=== PATIENT | male | born 1930 | race Caucasian/White ===

== ENCOUNTER → 2019-03-06 | Outpatient (CLI) | payer MEDICARE, BC | LOC: GMAM 19:12 | PROVIDERS: ATTEND Family Medicine | DX: Z12.5 Encounter for screening for malignant neoplasm of prostate (principal); I10 Essential (primary) hypertension ==

== ENCOUNTER → 2019-03-19 | Outpatient (CLI) | payer MEDICARE, BC | LOC: GMAM 11:43 | PROVIDERS: ATTEND Family Medicine | DX: R97.20 Elevated prostate specific antigen [PSA] (principal) ==

== ENCOUNTER 2020-04-19 07:09 | Emergency (ER) | payer MEDICARE, BC ==
--- NOTE | 2020-04-19 07:14 | ED.PDOC ---
History of Present Illness - General Time Seen by Provider: 04/19/20 07:10 Source: patient, family - History of Present Illness Initial Comments: 89-year-old male with past medical history of BPH who is brought in by daughter from home for chief complaint of unable to urinate. Patient reports he last urinated small volume approximately 11 hours ago. Since then he has been up for most of the night trying to urinate but unable. Reports severe discomfort to the lower abdominal region which radiates to the lower back bilaterally, constant, worse with palpation of the lower abdomen, tried taking Flomax x2 overnight without any relief. Reports history of enlarged prostate and has only had issues with urinary retention once before which was while he was in the hospital after his heart surgery and required a Sotelo catheter for a few days but states he has never been sent home with a urinary catheter. Denies any fevers, chills, dysuria/hematuria, constipation, diarrhea, cough, shortness of breath, chest pain, leg swelling. PCP is Dr. Spivey. His urologist is Dr. Melendez. Allergies/Adverse Reactions: Allergies NO KNOWN ALLERGY Allergy (Verified 04/19/20 07:31) Home Medications: Ambulatory Orders Clopidogrel Bisulfate 04/19/20 Metoprolol Tartrate 50 mg PO BID 04/19/20 Tamsulosin HCl 04/19/20 Review of Systems - Review of Systems Review of Systems: 04/19/20 07:30 as per HPI All other Systems: Reviewed and Negative Family Medical History - Family History Mother Family History: Unknown Living Status: Physical Exam - Physical Exam General Appearance: Alert, Comfortable, No apparent distress Eye Exam: bilateral normal Ears, Nose, Throat: hearing grossly normal, normal ENT inspection Neck: normal inspection Respiratory: lungs clear, normal breath sounds, no respiratory distress, no accessory muscle use Cardiovascular/Chest: normal peripheral pulses, regular rate, rhythm, no edema, no gallop, systolic murmur Peripheral Pulses: radial,right: 2+, radial,left: 2+ Gastrointestinal/Abdominal: soft, abnormal bowel sounds - diminished, distended, tenderness - moderate suprapubic ttp w/o rebound or guarding, mild BL lower CVA ttp Back Exam: normal inspection Extremity: normal range of motion, non-tender, normal inspection, no pedal edema, no calf tenderness, normal capillary refill 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 Consider also neurogenic bladder versus other obstructive processes. Consider also UTI, constipation, prostate cancer. -Patient stable, blood pressure slightly elevated, vitals otherwise normal -Bedside transabdominal ultrasound done by me reveals fluid-filled bladder with diameter of 16 cm. I estimate approximately 1500 cc of urine in the bladder. -We will Place Sotelo catheter in the ED and plan to send home with the catheter in place. Patient will need to follow-up with his PCP and urologist in the next 1 to 2 weeks to discuss possible trial of removal. -Obtain UA 04/19/20 09:08 -UA reveals moderate amount of blood, which is due to the placement of the Sotelo catheter. Otherwise no evidence of infection. -Patient has had greater than 1000 cc of urine output since Sotelo placement. He reports complete resolution of suprapubic discomfort. -Sotelo catheter left in place, patient to follow-up with PCP and urology. Catheter care discussed prior to discharge. Estrada Smith MD Billing #[id number]. Laboratory Results - last 24 hr 04/19/20 08:01 Urine Color Yellow Urine Appearance Sl cloudy Urine pH 5.5 Ur Specific [place] 1.020 Urine Protein Negative Urine Glucose (UA) Negative Urine Ketones Negative Urine Blood Large H Urine Nitrite Negative Urine Bilirubin Negative Urine Urobilinogen 0.2 Ur Leukocyte Esterase Negative Urine RBC 20-30 H Urine WBC 0 Ur Epithelial Cells 0 Urine Bacteria 0 Departure - Departure Clinical Impression: BPH with obstruction/lower urinary tract symptoms Time of Disposition: 07:35 Disposition: Discharge to Home or Self Care Condition: Good Instructions: Benign Prostatic Hyperplasia (Enlarged Prostate) (DC) Diet: resume usual diet Activity: increase activity as tolerated Referrals: Sctot Spivey MD [Primary Care Provider] - 1-2 Weeks Home Medications: Ambulatory Orders Clopidogrel Bisulfate 04/19/20 Metoprolol Tartrate 50 mg PO BID 04/19/20 Tamsulosin HCl 04/19/20 Additional Instructions: Keep the urinary catheter in place until your follow-up visit with Dr. Spivey and Dr. Melendez. With soap and water, gently wash the tip of the penis at the site of catheter entry once per day and pat dry. Afterwards apply generous amount of barrier protectant such as Vaseline in order to prevent irritation and rubbing of the skin at the site. Return to the ED if you develop concerning symptoms such as obstruction of the catheter, large bleeding and blood clots in the catheter, worsening abdominal pain, fevers, chills, etc. Follow-up with your primary care physician is recommended in the next 1 to 2 weeks for repeat evaluation or sooner as needed.
[2020-04-19 09:29] VITALS: BP 132/58; TEMP 97.2; O2SAT 97
== END 2020-04-19 09:20 | disposition home or self-care (01) ==
LOC: ER 07:09
DX: N40.1 Benign prostatic hyperplasia with lower urinary tract symptoms (principal); R33.8 Other retention of urine; Z79.899 Other long term (current) drug therapy

== ENCOUNTER → 2020-05-06 | Outpatient (CLI) | payer MEDICARE, BC | LOC: GMAM 16:58 | PROVIDERS: ATTEND Family Medicine | DX: R97.20 Elevated prostate specific antigen [PSA] (principal); I10 Essential (primary) hypertension ==

== ENCOUNTER → 2020-05-09 | Outpatient (CLI) | payer MEDICARE, BC ==
--- NOTE | 2020-05-09 09:00 | CT ---
EXAM DESCRIPTION: Abdoment/Pelvis w/o Contrast CLINICAL HISTORY: MALIGNANT NEOPLASM OF PROSTATE COMPARISON: None. TECHNIQUE: Noncontrast transaxial CT images of the abdomen and pelvis are obtained. This exam was performed according to our departmental dose-optimization program, which includes automated exposure control, adjustment of the mA and/or kV according to patient size and/or use of iterative reconstruction technique . FINDINGS: Visualized lung bases show interstitial scarring or atelectasis in the inferior lingula of the left upper lobe. Severe coronary artery calcifications are seen. Images of the abdomen are mildly degraded by patient breathing motion artifact. Given the limitations of a noncontrast exam the liver shows mild nodularity of the liver capsule. Mildly prominent umbilical vein is seen. Mild air in the biliary ductal system is seen. Surgical clips from cholecystectomy. The distal common bile duct measures 5 to 6 mm which is within normal limits. Noncontrast appearance of the spleen, pancreas, and adrenal glands are unremarkable. Mild to moderate scattered vascular calcifications are seen. 1.6 cm exophytic fluid attenuation cortical cyst of the anterior mid to lower pole right kidney. Fluid attenuation 9 mm cortical cyst of the medial mid pole left kidney. No nephrolithiasis. No ureteral calcification or obstruction. Sotelo catheter seen in a contracted urinary bladder. Moderate circumferential bladder wall thickening is seen. The prostate is enlarged measuring 4.4 x 5.1 cm indenting the floor of the urinary bladder. Prostate calcifications are seen. Moderate left and small right fat-containing inguinal hernias are seen. The appendix is air-filled and within normal limits. Stomach is poorly distended. No small bowel obstruction or bowel wall thickening. Mildly increased volume of stool throughout colon. Mild to moderate scattered diverticuli of the colon mainly the descending to sigmoid region are seen without associated inflammatory changes or fluid collections. Several less than 1 cm epigastric and periportal lymph nodes are seen with less than 1 cm periaortic and pericaval lymph nodes. Left periaortic lymph node image 67 of series 2 measures 8 mm short axis. Enlarged lymphadenopathy in the right external iliac chain region is seen with lymph node or group of lymph nodes measuring 4.1 cm AP by 3.1 cm transverse by 5.5 cm craniocaudal. Several less than 1 cm iliac chain lymph nodes are seen bilaterally. No groin lymphadenopathy. Osseous structures are diffusely osteopenic. Moderate to severe spondylitic changes of the spine are seen. Bridging marginal endplate osteophytes over multiple level suggests diffuse idiopathic skeletal hyperostosis. No osteoblastic lesions are identified. IMPRESSION: Enlarged prostate. Patient has a history of prostate cancer. Moderate circumferential urinary bladder wall thickening likely related to nondistention of the urinary bladder with Sotelo catheter in place. Enlarged soft tissue mass in the right external iliac chain region of the pelvis likely represents pathologically enlarged lymph node or group of lymph nodes related to patient's history of prostate cancer. Multiple nonspecific less than 1 cm retroperitoneal lymph nodes are identified. Colon diverticulosis without CT evidence of diverticulitis. Mild colon constipation or obstipation. Simple bilateral renal cortical cysts are seen. Mild air in the biliary system could represent sequela of previous sphincterotomy. Mild nodularity of the liver capsule could be related to imaging technique and mild patient breathing motion artifact versus cirrhosis. The umbilical vein is mildly prominent which raises suspicion for portal hypertension. Other findings as described above. Electronically signed by: Jaspreet Young MD 05/09/2020 8:58 AM CDT
== END ==
LOC: CT 08:00
PROVIDERS: ATTEND Family Medicine
DX: C61 Malignant neoplasm of prostate (principal); N32.89 Other specified disorders of bladder; Z96.89 Presence of other specified functional implants; Z96.0 Presence of urogenital implants; R22.2 Localized swelling, mass and lump, trunk; K57.30 Diverticulosis of large intestine without perforation or abscess without bleeding; K59.00 Constipation, unspecified; N28.1 Cyst of kidney, acquired; K83.8 Other specified diseases of biliary tract; K76.9 Liver disease, unspecified

== ENCOUNTER 2020-06-20 04:49 | Emergency (ER) | payer MEDICARE, BC ==
--- NOTE | 2020-06-20 04:53 | ED.PDOC ---
History of Present Illness - General Time Seen by Provider: 06/20/20 04:51 Source: patient, RN notes reviewed, Vital Signs reviewed, old records Exam Limitations: no limitations - History of Present Illness Initial Comments: 89 yo male with BPH comes in because he cannot urinate. HX of [place] catheter needed to urinate. denies dysuria, states he just got the [place] catheter taken out today. On two medications for prostate, one is flomax. no fever. last urinated 1130 PM, was small amount. denies frequent urine infections. Allergies/Adverse Reactions: Allergies NO KNOWN ALLERGY Allergy (Verified 04/19/20 07:31) Home Medications: Ambulatory Orders Clopidogrel Bisulfate 04/19/20 Metoprolol Tartrate 50 mg PO BID 04/19/20 Tamsulosin HCl 04/19/20 Review of Systems - Review of Systems Constitutional: Denies: chills, fever EENTM: Denies: throat pain Respiratory: Denies: short of breath Cardiology: Denies: chest pain Gastrointestinal/Abdominal: Denies: abdominal pain Genitourinary: States: see HPI Musculoskeletal: Denies: back pain Skin: Denies: rash Neurological: Denies: headache Endocrine: Denies: unexplained weight loss Hematologic/Lymphatic: Denies: blood clots, easy bleeding Past Medical History (General) - Patient Medical History Hx Seizures: No Hx Stroke: No Hx Dementia: No Hx Asthma: No Hx of COPD: No Hx Cardiac Disorders: Yes Hx Congestive Heart Failure: No Hx Pacemaker: No Hx Hypertension: Yes Hx Thyroid Disease: No Hx Diabetes: No Hx Gastroesophageal Reflux: No Hx Renal Disease: No Hx Cancer: No Hx Hepatitis C: No - Vaccination History Hx Tetanus, Diphtheria Vaccination: Yes Hx Influenza Vaccination: Yes Hx Pneumococcal Vaccination: Yes - Social History Hx Tobacco Use: No Hx Alcohol Use: No Family Medical History - Family History Mother Family History: Unknown Living Status: Physical Exam - Physical Exam General Appearance: Alert, Comfortable, No apparent distress, Well Developed, Well Groomed, Well Hydrated, Well Nourished Eyes, Ears, Nose, Throat Exam: normal ENT inspection Neck: supple, normal inspection Cardiovascular/Respiratory: regular rate, rhythm Gastrointestinal/Abdominal: non tender, soft Male Genital Exam: normal genitalia Back Exam: normal inspection Extremity: normal range of motion Neurologic: no motor/sensory deficits, alert, normal mood/affect, oriented x 3 Skin Exam: normal color, warm/dry Progress - Progress Progress: 06/20/20 05:01 bedside US shows urine bladder [address] urine catheter will send urine off for analysis. 06/20/20 05:37 06/20/20 05:19 URINE CULTURE W/COLONY COUNT Stat 06/20/20 05:29 Catheter:[place] QSHIFT Laboratory Results Urine Color Yellow (Yellow) 06/20/20 05:19 Urine Appearance Clear (Clear) 06/20/20 05:19 Urine pH 5.5 (4.5-7.8) 06/20/20 05:19 Ur Specific [place] 1.015 (1.005-1.030) 06/20/20 05:19 Urine Protein Negative mg/dL 06/20/20 05:19 Urine Glucose (UA) Negative mg/dL (Negative) 06/20/20 05:19 Urine Ketones Negative mg/dL (NEGATIVE) 06/20/20 05:19 Urine Blood Trace-intact (Negative) H 06/20/20 05:19 Urine Nitrite Negative 06/20/20 05:19 Urine Bilirubin Negative (NEGATIVE) 06/20/20 05:19 Urine Urobilinogen 0.2 mg/dL (0.2-1.0) 06/20/20 05:19 Ur Leukocyte Esterase Small (Negative) H 06/20/20 05:19 Urine RBC 0-1 /hpf 06/20/20 05:19 Urine WBC 10-20 /hpf H 06/20/20 05:19 Ur Epithelial Cells 0 /hpf 06/20/20 05:19 Amorphous Sediment Trace 06/20/20 05:19 Urine Bacteria 0 06/20/20 05:19 The data reviewed when caring for this patient included: nurse notes, prior records, etc. The history and assessments from nurses notes were reviewed and considered, and the patient's home medication list was also reviewed and considered. My assessment and the results of testing completed here in the ED were discussed with the patient/family. All questions were answered, and they express understanding of my assessment and the plan. They have been instructed to return if their symptoms worsen, and have been asked to follow up with their primary care physician to recheck today's presenting complaint. return precautions given. Dotty Ross DO #[id number] Departure - Departure Clinical Impression: BPH with obstruction/lower urinary tract symptoms Time of Disposition: 05:38 Disposition: Discharge to Home or Self Care Instructions: How to Care for Your [place] Catheter, Male, [place] Catheter, Male, Urinary Retention (DC) Diet: resume usual diet Activity: increase activity as tolerated Referrals: Scott Spivey MD [Primary Care Provider] - 1-5 Days Home Medications: Ambulatory Orders Clopidogrel Bisulfate 04/19/20 Metoprolol Tartrate 50 mg PO BID 04/19/20 Tamsulosin HCl 04/19/20 Additional Instructions: Follow up with your urologist.
[2020-06-20 05:21] VITALS: O2SAT 99
[2020-06-20 06:10] VITALS: BP 136/88; TEMP 97.2
== END 2020-06-20 06:05 | disposition home or self-care (01) ==
LOC: ER 04:49
DX: N40.1 Benign prostatic hyperplasia with lower urinary tract symptoms (principal); R33.8 Other retention of urine; I51.9 Heart disease, unspecified; I10 Essential (primary) hypertension